=== PATIENT | female | born 1955 | race Caucasian/White ===

== ENCOUNTER 2024-09-20 17:24 | Emergency (ER) | payer MEDICARE ==
[~2024-09-20] VITALS: Ht 170.2 cm; Wt 112.2 kg
[2024-09-20] MEDS ORDERED: ATORVASTATIN CA20 MG PO (18:03)
[2024-09-20] MEDS ORDERED: PRESERVISION A1 EAC6 (18:03)
[2024-09-20] MEDS ORDERED: HYDROCHLOROTHIA25 MG PO (18:03)
[2024-09-20] MEDS ORDERED: GLUCOSA-CHOND-1 EACH (18:03)
[2024-09-20] MEDS ORDERED: RAMIPRIL5 MG PO (18:03)
[2024-09-20] MEDS ORDERED: ALIGN4 MG (18:03)
[2024-09-20] MEDS ORDERED: LEVOTHYROXINE50 MCG PO (18:03)
[2024-09-20] MEDS ORDERED: VITAMIN D32400 UNIT/ (18:03)
[2024-09-20] MEDS ORDERED: TYLENOL325 MG PO (18:03)
[2024-09-20 19:20] VITALS: PULSE 83; RESP 18; TEMP 98.6; O2SAT 97
== END 2024-09-20 19:20 | disposition home or self-care (01) ==
LOC: EDBD 17:24 → FSED 17:34 → EDSEX 17:34 → FSED 19:20
DX: M79.605 Pain in left leg (principal); M79.89 Other specified soft tissue disorders; I10 Essential (primary) hypertension; E78.5 Hyperlipidemia, unspecified; E03.9 Hypothyroidism, unspecified
CPT/HCPCS: 80053; 85025; 93971; 99283